=== PATIENT | male | born 1985 | race Caucasian/White ===

== ENCOUNTER 2016-07-11 20:46 | Emergency (ER) | payer OTHER ==
[~2016-07-11] VITALS: Ht 177.8 cm; Wt 79.4 kg
[2016-07-11] MEDS ORDERED: HYDR10T PO (21:10)
[2016-07-11] MEDS ORDERED: OMEP40CA2 PO (21:10)
[2016-07-11] MEDS ORDERED: CELE40TA PO (21:10)
[2016-07-11 22:55] LABS: MEAN CORPUSCULAR HEMOGLOBIN 30.3 pg (27.0-33.0); MEAN CORPUSCULAR HGB CONC 32.5 g/dl (32.0-36.5); MEAN CORPUSCULAR VOLUME 93.3 fl (80.0-96.0); RED CELL DISTRIBUTION WIDTH 12.4 % (11.5-14.5); WHITE BLOOD COUNT 6.7 K/mm3 (4.0-10.0)
[2016-07-11 23:18] LABS: METHADONE URINE NEGATIVE (NEGATIVE)
[2016-07-11 23:31] LABS: ALBUMIN 4.2 GM/DL (3.2-5.2); ALBUMIN/GLOBULIN RATIO 1.24 (1.00-1.93); ALKALINE PHOSPHATASE 82 U/L (45-117); ALT/SGPT 30 U/L (12-78); ANION GAP 8 MEQ/L (8-16); AST/SGOT 21 U/L (15-37); BILIRUBIN,DIRECT < 0.1 MG/DL (0.0-0.2); BILIRUBIN,TOTAL 0.2 MG/DL (0.2-1.0); BLOOD UREA NITROGEN 16 MG/DL (7-18); CALCIUM LEVEL 8.7 MG/DL (8.5-10.1); CARBON DIOXIDE LEVEL 29 MEQ/L (21-32); CHLORIDE LEVEL 102 MEQ/L (98-107); CREATININE FOR GFR 0.95 MG/DL (0.70-1.30); GLOMERULAR FILTRATION RATE > 60.0 (>60); GLUCOSE, FASTING 75 MG/DL (70-105); POTASSIUM SERUM 4.3 MEQ/L (3.5-5.1); SODIUM LEVEL 139 MEQ/L (136-145); TOTAL PROTEIN 7.6 GM/DL (6.4-8.2)
[2016-07-12] MEDS ORDERED: hydrOXYzine 10 MG TAB PO ONE (07:30)
[2016-07-12] MEDS ORDERED: OMEPRAZOLE 20 MG CAP PO ONE (09:00)
[2016-07-12] MEDS ORDERED: CitaloPRAM (CeleXA) 20 MG TAB PO ONE (09:00)
[2016-07-12 10:24] VITALS: BP 115/68
== END 2016-07-12 10:34 | disposition home or self-care (01) ==
LOC: M ED 22:53
DX: F43.21 Adjustment disorder with depressed mood (principal)